=== PATIENT | male | born 1970 ===

== ENCOUNTER → 2023-05-20 | Emergency (ER) | payer SELFPAY ==
[~2023-05-20] MED LIST: AMIODARONE HCL 150 MG/3 ML INJ IV ONE; Calcium Chloride 10% INJ SYR IV ONE; D50W 25 GM/50 ML SYRINGE IV ONE; EPINEPHrine 1 MG/10 ML SYR IV ONE; NA CHLORIDE 0.9% 1,000 ML IV ONE
--- NOTE | 2023-05-20 09:27 | EDPHYS ---
Physician Documentation [facility] Name: Wagner Mckinley Age: 52 yrs Sex: Male : 1970 Arrival Date: 05/20/2023 Time: 06:39 Bed 1 Private MD: ED Physician Tyler Jung HPI: 05/19 07:06 This 52 yrs old Male presents to ER via Unassigned with complaints of sp4 Shortness Of Breath. 07:44 52-year-old male arrived with EMS for moderate to severe shortness of breath associated sp4 diaphoresis and generalized weakness. . 07:45 Patient reported that his shortness of breath has been getting worse for the past 2 sp4 weeks on arrival patient is acute respiratory distress anxious and diaphoretic. Full ROS could not be obtained. EMS reports that patient is residing at the hotel at this time . 07:55 EMS has reported that patient has had some ST elevations on the EKG without reciprocal sp4 ST depressions. . Historical: - Allergies: 06:40 Unable to obtain; bm8 - Home Meds: 06:40 Unable to obtain [Active]; bm8 - PMHx: 06:40 Unable to Obtain; bm8 - PSHx: 06:40 Unable to Obtain; bm8 - Code Status:: unknown. - Family history:: not pertinent. ROS: 07:45 Constitutional: Positive for generalized weakness, shortness of breath, and positive sp4 for respiratory difficulty 07:45 All other systems are negative, Exam: 07:45 Constitutional: Patient arrives with pallor, diaphoresis, moderate to severe sp4 respiratory distress, tripoding, and anxious. Patient developed severe panic attack associated with severe respiratory distress. 07:45 Head/Face: Normocephalic, atraumatic. Eyes: Pupils equal round and reactive to light, sp4 extra-ocular motions intact. Lids and lashes normal. Conjunctiva and sclera are not injected. Cornea within normal limits. Periorbital areas with no swelling, redness, or edema. ENT: Nares patent. No nasal discharge, no septal abnormalities noted. Tympanic membranes are normal and external auditory canals are clear. Oropharynx with no redness, swelling, or masses, exudates, or evidence of obstruction, uvula midline. Mucous membranes moist. Neck: Trachea midline, no thyromegaly or masses palpated, and no cervical lymphadenopathy. Supple, full range of motion without nuchal rigidity, or vertebral point tenderness. Chest/axilla: Normal chest wall appearance and motion. Nontender with no deformity. No lesions are appreciated. Cardiovascular: Regular tachycardia. No gallops, murmurs, or rubs. Normal PMI, no JVD. No pulse deficits. Respiratory: Lungs have equal breath sounds bilaterally, clear to auscultation and percussion. No rales, rhonchi or wheezes noted. No increased work of breathing, no retractions or nasal flaring. Abdomen/GI: Soft, with normal bowel sounds. No distension or tympany. No guarding or rebound. No evidence of tenderness throughout. Back: No spinal tenderness. No costovertebral tenderness. Male : Normal genitalia with no discharge or lesions. Skin: Warm, generalized pallor, diaphoresis, MS/ Extremity: Pulses equal, no cyanosis. Neurovascular intact. Full, normal range of motion. Neuro: Awake and alert, GCS 15, patient is with acute panic attack on arrival. Moves all extremities grossly no lateralizing neurologic deficits. Vital Signs: 06:39 BP 110 / 89; Pulse 137; Resp 35; Pulse Ox 55% on R/A; Weight 110.22 kg; Height 5 ft. 9 bm8 in. ; 06:39 Body Mass Index 35.88 (110.22 kg, 175.26 cm) bm8 [place] Coma Score: 06:39 Eye Response: spontaneous(4). Motor Response: obeys commands(6). Verbal Response: bm8 oriented(5). Total: 15. Procedures: 07:55 Intubation: Intubated Intubation accomplished at 0 6:43 AM - Glyde scope intubation sp4 without RSI after patient became unresponsive using S4 glide scope blade with 8.5 mm ETT. was successful on first attempt. Ventilated with Ambu bag. ventilator. Tube secured with ETT tran at center of mouth measured 25 cm at lip. Placement verified by CO2 detector with (+) color change, auscultating bilateral breath sounds, Patient tolerated Successful intubation, crush intubation without RSI. Central Line: the site was prepped with in sterile fashion, Chlorhexidine. Sterile prep, a triple lumen catheter was inserted, in the right femoral vein, in 1 attempts. placement was verified, by blood return, the site was dressed with 4X4s, Tegaderm, using sterile technique, the patient tolerated the procedure, Successful emergent right femoral central line placed for resuscitation. MDM: 07:06 ED course: Time of 07:02 AM . sp4 07:09 Patient medically screened. sp4 07:55 Differential diagnosis: asthma, CHF exacerbation, Chronic Obstructive Pulmonary Disease sp4 Myocardial Infarction pneumonia, Pneumothorax Psychogenic pulmonary edema, Pulmonary Embolism. Data reviewed: vital signs, nurses notes, EMS record. ED course: Patient arrived at 6:39 and the morning. Patient arrived in severe respiratory distress with acute anxiety and panic attack secondary to hypoxemia. Patient then became unresponsive at 6:42 and lost pulses. CPR was initiated and patient was intubated with ET tube at 0 6:43 AM without RSI. Patient was noted to have ventricular fibrillation and he was defibrillated several times. Throughout the resuscitation patient was given IV epinephrine at regular intervals, IV bicarbonate, IV dextrose, IV calcium chloride, amiodarone bolus 300 mg, but despite all resuscitative efforts and Paulino device assisted chest compressions, there was no return of spontaneous circulation's. Patient was resuscitated room 0 6:42 AM until 07:02. Bedside ultrasound revealed no signs of cardiac contractility. Patient was pronounced at 07:0 2 in the morning. There is no family to notify. . Administered Medications: No medications were administered Disposition: 07:06 . sp4 Disposition Summary: 05/20/23 09:26 Patient Notes: Pronouncing Physician: Tyler Jung Time of : 07:02 05/20/2023 iw Diagnosis - Respiratory arrest iw - Cardiac arrest, cause unspecified iw Signatures: Valentina Acosta RN RN iw Tyler Jung MD MD sp4 Andrew Gomes RN RN bm8 Corrections: (The following items were deleted from the chart) 07:47 07:45 Constitutional: Negative for fever, chills, and weight loss, sp4 sp4
--- NOTE | 2023-05-20 09:27 | ER ---
Nurse's Notes [facility] Name: Wagner Mckinley Age: 52 yrs Sex: Male : 1970 Arrival Date: 05/20/2023 Time: 06:39 Bed 1 Private MD: Diagnosis: Respiratory arrest;Cardiac arrest, cause unspecified Presentation: 05/19 06:40 Chief complaint: EMS states: pt c/o shortness of breath for 2 weeks, just not feeling. bm8 On arrival pt was tripoding. placed pt on NRB 15L. Care prior to arrival: Medication(s) given: ASA, 81 mg, x 4, IV initiated. 20 GA, in the right hand, Oxygen administered. via a non-rebreather mask. 06:40 Method Of Arrival: EMS: [facility] bm8 06:40 Acuity: RYAN 1 bm8 06:40 Care prior to arrival: Medication(s) given: Normal saline infusion, 300 ml solumedrol bm8 125 mg. 06:42 Compressions began at 06:42. bm8 07:57 Note [employer] notified; spoke with Keli Marsh #[phone]; will call back [phone] with more questions. Historical: - Allergies: 06:40 Unable to obtain; bm8 - Home Meds: 06:40 Unable to obtain [Active]; bm8 - PMHx: 06:40 Unable to Obtain; bm8 - PSHx: 06:40 Unable to Obtain; bm8 - Code Status:: unknown. - Family history:: not pertinent. Screenin:39 Abuse screen: unable to obtain. Nutritional screening: No deficits noted. Tuberculosis bm8 screening: unable to obtain . Assessment: 06:40 General: Appears distressed, uncomfortable, Behavior is anxious, restless, bm8 uncooperative. Neuro: Level of Consciousness is awake, alert, Oriented to person, place, time, situation, Appropriate for age Dental Equipment Repairer are equal bilaterally. EENT: No deficits noted. No signs and/or symptoms were reported regarding the EENT system. Cardiovascular: Reports shortness of breath. Respiratory: Airway is patent Respiratory effort is labored, gasping, using tripod position, Respiratory pattern is hyperventilation tachypnea the patient has severe shortness of breath. GI: No deficits noted. No signs and/or symptoms were reported involving the gastrointestinal system. : No deficits noted. No signs and/or symptoms were reported regarding the genitourinary system. Derm: Skin is clammy, diaphoretic. Musculoskeletal: No deficits noted. No signs and/or symptoms reported regarding the musculoskeletal system. 06:42 CPR assessment: unresponsive, no respiratory effort. Cardiac rhythm is pt not on bm8 monitor due to cpr being started before being put on monitor. 07:33 CPR assessment: 0642 code blue called CPR started. 0643 epi 0645 pulse check, pt in bm8 V-fib, 200j delivered via zoll, resume compressions 0645 bi carb given, calcium gluconate given 0646 epi given 0648 pulse check, pt in V-fib, 200j delivered via zoll, resume compressions , joseluis applied 0649 epi given 0650 pulse check, pt in V-fib, 200j delivered via zoll, resume compressions 0651 calcium gluconate given , NS 1L 0652 amiodarone 300 mg given, pulse checks, pt in V-fib, 200j delivered via zoll, resume compressions, central line place in right femoral, magnesium given 0654 pulse check, pt in asystole, resume compressions, epi and bicarb given 0656 pulse check, pt in asystole, resume compressions, epi given 0658 pulse check, pt in asystole, resume compressions 0659 epi given 0700 pulse checks, pt in asystole, resume compressions 0701 epi given 0702 pulse check, pt in asystole, cardiac activity check via ultrasound by , none seen, pt pronounced 0702 time of . 08:04 Reassessment: [employer] called at 0747, talked to keli marsh case#[id number]. bm8 09:00 Reassessment: Per [facility] Officer Christina at bedside, health information manager ok release to home. Brother Javid Saji [phone] to decide on home. Belongings taken by officer Christina to send to family. 10:35 Reassessment: [employer] rep Krystal, on the phone, given pateints brothers number [phone] (Javid Lennon [phone]). Update given, she will call back later for update on home. 14:28 Reassessment: Unsuccessful attempt to call Javid Lennon at this time to inquire about [facility] home as instructed by ED director. Vital Signs: 06:39 BP 110 / 89; Pulse 137; Resp 35; Pulse Ox 55% on R/A; Weight 110.22 kg; Height 5 ft. 9 bm8 in. ; 06:39 Body Mass Index 35.88 (110.22 kg, 175.26 cm) bm8 [place] Coma Score: 06:39 Eye Response: spontaneous(4). Motor Response: obeys commands(6). Verbal Response: bm8 oriented(5). Total: 15. ED Course: 06:39 Patient has correct armband on for positive identification. Placed in gown. Assisted bm8 provider with intubation using 8.5 mm ETT via oral route. ET tube secured at 26cm at the lips. Intubated by Tyler Jung MD. 06:40 Patient arrived in ED. wm 07:06 Tyler Jung MD is Attending Physician. sp4 07:08 Andrew Gomes, RN is Primary Nurse. bm8 07:08 notified kingsley crandall to have the health information manager configurator come to er. bd 07:15 Triage completed. bm8 07:33 phone, wallet and license given to kingsley crandall. bd 09:25 Tyler Jung MD is Pronouncing Provider. iw 15:03 spoke with [facility] in [place], [place]. They are arranging transportation to a local home. Will have transport company call me back. 15:16 [facility] will be en route to transport body. iw 18:20 [facility] at bedside to transport pt. iw Administered Medications: No medications were administered Outcome: 07:05 Outcome Patient bm8 07:05 Patient : Time of 07:02 Pronounced by Tyler Jung MD 07:05 Condition: 18:24 Patient left the ED. iw Signatures: Kamila Winn Irene, RN RN Corie Fletcher, RN RN Velma Ivory Tyler Jung MD MD sp4 Hermelinda Tang RN RN [facility] Naima Jorge RN RN 8 Andrew Gomes, RN RN bm8
[2023-05-20 19:24] VITALS: BP 110/89; O2SAT 55
== END ==
LOC: ER 06:39
PROC: 06HM33Z Insertion of Infusion Device into Right Femoral Vein, Percutaneous Approach (ICD-10-PCS; principal; 2023-05-20)
DX: I46.9 Cardiac arrest, cause unspecified (principal)
CPT/HCPCS: J0171; J0282; J7030